=== PATIENT | female | born 1970 | race Caucasian/White ===

== ENCOUNTER 2022-04-04 12:51 | Emergency (ER) | payer OTHER ==
[~2022-04-04] VITALS: Ht 167.6 cm; Wt 59.1 kg
[2022-04-04 15:47] VITALS: BP 120/80
== END 2022-04-04 15:50 | disposition home or self-care (01) | DRG 605 ==
LOC: ED 12:51
DX: S00.03XA Contusion of scalp, initial encounter (principal); V59.50XA Passenger in pick-up truck or van injured in collision with unspecified motor vehicles in traffic accident, initial encounter